=== PATIENT | female | born 1935 | race American Indian/Alaskan Native ===

== ENCOUNTER 2018-02-26 22:05 | Emergency (ER) | payer MEDICARE, OTHER ==
[~2018-02-26] VITALS: Ht 170.2 cm; Wt 68.0 kg
[~2018-02-26 22:05] MED LIST: ACET-3068 PO; ATOR40TA3 PO; BUPR150T6 PO; CALC1TAB26 PO; CLOP75TA33 PO; IBUP-1985 PO; ISOS30TA6 PO; LISI10TA4 PO; LOPE2CAP PO; LORA-660 PO; MECL-111 PO; MECL12.584 PO; METO-384 PO; PANT-47 PO; RANO10003 PO
[2018-02-26] MEDS ORDERED: morphine 4 MG/ML inj SYRINge IM ONE (22:45)
[2018-02-26] MEDS ORDERED: ondansetron 4mg rapidly disintigrating tab PO ONE (22:45)
[2018-02-26 23:45] VITALS: BP 130/71
== END 2018-02-27 00:18 | disposition home or self-care (01) ==
LOC: ER 22:06
DX: S52.502A Unspecified fracture of the lower end of left radius, initial encounter for closed fracture (principal); S00.83XA Contusion of other part of head, initial encounter; I25.10 Atherosclerotic heart disease of native coronary artery without angina pectoris; E78.00 Pure hypercholesterolemia, unspecified; I10 Essential (primary) hypertension; K21.9 Gastro-esophageal reflux disease without esophagitis; G89.29 Other chronic pain; Z90.49 Acquired absence of other specified parts of digestive tract; Z98.61 Coronary angioplasty status; Z90.710 Acquired absence of both cervix and uterus; Z98.890 Other specified postprocedural states; Z60.2 Problems related to living alone; Z79.899 Other long term (current) drug therapy; W01.0XXA Fall on same level from slipping, tripping and stumbling without subsequent striking against object, initial encounter; Y93.89 Activity, other specified; Y92.89 Other specified places as the place of occurrence of the external cause; Y99.8 Other external cause status
CPT/HCPCS: 29125; 70450; 73110; 73502; 96372; 99284; J2270

== ENCOUNTER 2018-03-01 13:30 | Inpatient (IN) | payer MEDICARE, OTHER ==
[~2018-03-01] VITALS: Ht 170.2 cm; Wt 67.0 kg
[2018-03-01 13:56] LABS: BASOPHILS % (AUTO) 0.3 % (0-1); EOSINOPHILS # (AUTO) 0.1 X10'3 (0-0.9); EOSINOPHILS % (AUTO) 0.8 % (0-6); HEMATOCRIT 38.3 % (35.0-45.0); HEMOGLOBIN 13.1 g/dl (12.0-16.0); LYMPHOCYTES # (AUTO) 1.2 X10'3 (1.1-4.8); LYMPHOCYTES % (AUTO) 15.7 % (21-51); MEAN CORPUSCULAR HEMOGLOBIN 31.3 PG (27.0-31.0); MEAN CORPUSCULAR HGB CONC 34.1 % (33.0-36.5); MEAN CORPUSCULAR VOLUME 91.7 FL (78-98); MEAN PLATELET VOLUME 7.2 FL (7.4-10.4); MONOCYTES # (AUTO) 0.8 X10'3 (0-0.9); MONOCYTES % (AUTO) 10.2 % (2-12); NEUTROPHILS # (AUTO) 5.5 X10'3 (1.8-7.7); PLATELET COUNT 181 X10'3 (140-440); RED BLOOD COUNT 4.18 X10'6 (4.20-5.60); RED CELL DISTRIBUTION WIDTH 14.1 % (11.5-14.5); WHITE BLOOD COUNT 7.5 X10'3 (4.5-11.0)
[2018-03-01 14:09] LABS: PARTIAL THROMBOPLASTIN TIME 27 SECONDS (22-32); PROTHROMBIN TIME 10.4 SECONDS (9.0-12.0)
[2018-03-01 14:15] LABS: ALANINE AMINOTRANSFERASE 17 U/L (12-78); ALBUMIN 3.1 G/DL (3.4-5.0); ALBUMIN/GLOBULIN RATIO 0.8 (1.1-1.5); ALKALINE PHOSPHATASE 73 IU/L (46-116); ANION GAP 9 (8-16); ASPARTATE AMINO TRANSFERASE 15 U/L (10-37); BILIRUBIN,TOTAL 1.2 MG/DL (0.1-1.0); BLOOD UREA NITROGEN 13 MG/DL (7-18); CALCIUM 8.9 MG/DL (8.5-10.1); CHLORIDE 101 MMOL/L (99-107); CREATININE 0.93 MG/DL (0.40-0.90); GLUCOSE 92 MG/DL (70-104); POTASSIUM 3.3 MMOL/L (3.5-5.1); SODIUM 137 MMOL/L (135-145); TOTAL PROTEIN 6.9 G/DL (6.4-8.2); eGFR 58 ML/MIN
[2018-03-01] MEDS ORDERED: potassium Cl 20 mEq SR tablet PO STA (14:38)
[2018-03-01] MEDS ORDERED: aspirin 81mg tab.chew PO ONE (14:40)
[2018-03-01] MEDS ORDERED: LACT1CAP65 PO (15:09)
[2018-03-01] MEDS ORDERED: CYAN-19 PO (15:09)
[2018-03-01] MEDS ORDERED: OXYB5TAB11 PO (15:09)
[2018-03-01] MEDS ORDERED: VITA400C65 PO (15:09)
[2018-03-01] MEDS ORDERED: NITR0.4T51 SL (15:09)
[2018-03-01] MEDS ORDERED: MAGN400C PO (15:09)
[2018-03-01] MEDS ORDERED: morphine 4 MG/ML inj SYRINge IV ONE (15:25)
[2018-03-01] MEDS ORDERED: ondansetron/PF 4mg/2ml inj IV ONE (15:25)
[2018-03-01] MEDS ORDERED: magnesium hydroxide 30ml (MOM) UD suspension PO PRN (16:05)
[2018-03-01] MEDS ORDERED: magnesium 1gm/100ml D5W IVPB 100 ML IV PRN (16:05)
[2018-03-01] MEDS ORDERED: HYDROcodone/acetaminophen 10/325mg tab PO PRN (16:05)
[2018-03-01] MEDS ORDERED: mag hydrox/Alum hydrox/simeth 30ml oral suspension PO PRN (16:05)
[2018-03-01] MEDS ORDERED: morphine 4 MG/ML inj SYRINge IV PRN ×2 (16:05)
[2018-03-01] MEDS ORDERED: ondansetron/PF 4mg/2ml inj IV PRN (16:05)
[2018-03-01] MEDS ORDERED: bisacodyl 10mg suppository rectal RC PRN (16:05)
[2018-03-01] MEDS ORDERED: magnesium 4gm in 100ml NS 100 ML IV PRN (16:05)
[2018-03-01] MEDS ORDERED: potassium Cl 20 mEq SR tablet PO PRN ×2 (16:05)
[2018-03-01] MEDS ORDERED: potassium Cl 40MEQ/NS 500ml 500 ML IV PRN ×2 (16:05)
[2018-03-01] MEDS ORDERED: acetaminophen 325mg tablet PO PRN (16:05)
[2018-03-01] MEDS ORDERED: magnesium Cl slow-release 64mg tablet PO PRN (16:05)
[2018-03-01] MEDS ORDERED: nitroGLYCERIN 0.4mg SUBLingual tab SL PRN ×2 (16:10)
[2018-03-01] MEDS ORDERED: pantoprazole 40mg Tablet.DR PO SCH (16:10)
[2018-03-01] MEDS ORDERED: CAFFEINE CITRATE 60 MG/3 ML injection vial IV PRN (16:10)
[2018-03-01] MEDS ORDERED: metoprolol tartrate 1mg/ml inj IV PRN (16:10)
[2018-03-01 16:40] VITALS: BP 140/61
[2018-03-01 19:00] VITALS: BP 102/39
[2018-03-01] MEDS: LIDOcaine 5% patch TP SCH (19:22)
[2018-03-01] MEDS: ranolazine 500mg SR tablet (Q12H) PO SCH (21:12)
[2018-03-01] MEDS: magnesium oxide 400mg tablet PO SCH (21:13)
[2018-03-01] MEDS: calcium carbonate/vitamin D3 tablet PO SCH (21:13)
[2018-03-01] MEDS: oxybutynin 5mg tablet PO SCH (21:13)
[2018-03-01] MEDS: lactobacillus rhamnosus 10,000 MMU CELLS/CAPSULE PO SCH (21:14)
[2018-03-01] MEDS: docusate sod 100mg capsule PO SCH (21:14)
[2018-03-01] MEDS: HYDROcodone/acetaminophen 5mg/325mg tablet PO PRN (21:18)
[2018-03-01 23:00] VITALS: BP 99/51
[2018-03-02] VITALS (19 sets, daily range): BP systolic 103–139; BP diastolic 51–65
[2018-03-02 02:15] LABS: ALBUMIN 2.9 G/DL (3.4-5.0); ANION GAP 4 (8-16); BLOOD UREA NITROGEN 12 MG/DL (7-18); BUN/CREATININE RATIO 11.9 (6.6-38.0); CALCIUM 8.7 MG/DL (8.5-10.1); CHLORIDE 105 MMOL/L (99-107); CREATININE 1.01 MG/DL (0.40-0.90); GLUCOSE 104 MG/DL (70-104); MAGNESIUM 1.8 MG/DL (1.5-2.4); POTASSIUM 4.3 MMOL/L (3.5-5.1); SODIUM 137 MMOL/L (135-145); TOTAL CARBON DIOXIDE 28.4 MMOL/L (24-32); eGFR 52 ML/MIN
[2018-03-02] MEDS ORDERED: regadenoson 0.4mg/5ml syringe IV PRN (05:00)
[2018-03-02] MEDS: LIDOcaine 5% patch TP SCH (07:22)
[2018-03-02] MEDS: enoxaparin 40mg/0.4ml syringe SUBCUT SCH (07:23)
[2018-03-02] MEDS: loratadine 10mg tablet PO SCH (07:24)
[2018-03-02] MEDS: cyanocobalamin 500mcg tablet PO SCH (07:24)
[2018-03-02] MEDS: vitamin E 400 unit capsule PO SCH (07:24)
[2018-03-02] MEDS: lactobacillus rhamnosus 10,000 MMU CELLS/CAPSULE PO SCH ×2 (07:27→20:07)
[2018-03-02] MEDS: calcium carbonate/vitamin D3 tablet PO SCH ×2 (07:28→20:08)
[2018-03-02] MEDS: pantoprazole 40mg Tablet.DR PO SCH (07:28)
[2018-03-02] MEDS: isosorbide mononitrate 30mg tab.SR.24H PO SCH (07:30)
[2018-03-02] MEDS: ranolazine 500mg SR tablet (Q12H) PO SCH ×2 (07:31→20:10)
[2018-03-02] MEDS: clopidogrel 75mg tablet PO SCH (07:31)
[2018-03-02] MEDS: K and/or MAG REPLACEMENT MC SCH (08:00)
[2018-03-02] MEDS: docusate sod 100mg capsule PO SCH ×2 (08:00→20:07)
[2018-03-02] MEDS ORDERED: CAFFEINE CITRATE 60 MG/3 ML injection vial IV ONE ×2 (10:02→15:08)
[2018-03-02] MEDS ORDERED: regadenoson 0.4mg/5ml syringe IV ONE ×3 (10:02→15:08)
[2018-03-02] MEDS: metoprolol succinate 25mg (24-HOUR) SR. Tablet PO SCH (17:47)
[2018-03-02] MEDS: HYDROcodone/acetaminophen 5mg/325mg tablet PO PRN (20:09)
[2018-03-02] MEDS: oxybutynin 5mg tablet PO SCH (20:09)
[2018-03-02] MEDS: magnesium oxide 400mg tablet PO SCH (20:09)
[2018-03-03 02:00] VITALS: BP 132/61
[2018-03-03] MEDS: HYDROcodone/acetaminophen 5mg/325mg tablet PO PRN ×2 (05:38→22:50)
[2018-03-03 06:00] VITALS: BP 132/50
[2018-03-03] MEDS: clopidogrel 75mg tablet PO SCH (07:41)
[2018-03-03] MEDS: metoprolol succinate 25mg (24-HOUR) SR. Tablet PO SCH (07:41)
[2018-03-03] MEDS: isosorbide mononitrate 30mg tab.SR.24H PO SCH (07:41)
[2018-03-03] MEDS: vitamin E 400 unit capsule PO SCH (07:41)
[2018-03-03] MEDS: LIDOcaine 5% patch TP SCH (07:41)
[2018-03-03] MEDS: lactobacillus rhamnosus 10,000 MMU CELLS/CAPSULE PO SCH ×2 (07:41→20:42)
[2018-03-03] MEDS: cyanocobalamin 500mcg tablet PO SCH (07:41)
[2018-03-03] MEDS: loratadine 10mg tablet PO SCH (07:41)
[2018-03-03] MEDS: pantoprazole 40mg Tablet.DR PO SCH (07:41)
[2018-03-03] MEDS: calcium carbonate/vitamin D3 tablet PO SCH ×2 (07:42→20:45)
[2018-03-03] MEDS: enoxaparin 40mg/0.4ml syringe SUBCUT SCH (07:42)
[2018-03-03] MEDS: ranolazine 500mg SR tablet (Q12H) PO SCH ×2 (07:42→20:44)
[2018-03-03] MEDS: docusate sod 100mg capsule PO SCH ×2 (07:42→20:42)
[2018-03-03] MEDS: K and/or MAG REPLACEMENT MC SCH (08:00)
[2018-03-03 09:23] LABS: CLARITY,URINE Cloudy (Clear); COLOR,URINE Yellow (Yellow); GLUCOSE, URINE Negative (Neg); KETONES,URINE Negative (Neg); LEUKOCYTE ESTERASE ,URINE Large (Neg); NITRITES, URINE Negative (Neg); OCCULT BLOOD,URINE Trace (Neg); PROTEIN,URINE Negative (Neg)
[2018-03-03 09:26] LABS: UA COLLECTION TYPE STRAIGHT CATH
[2018-03-03 09:29] LABS: BACTERIA,URINE 4+ /HPF (Neg); MUCUS STRANDS NONE SEEN /LPF (Neg); RBC,URINE 0-2 /HPF (0-2); SQUAMOUS EPITHELIAL CELL,UR NONE SEEN /LPF (FEW); WBC CLUMPS,URINE MODERATE /HPF (NEGATIVE); WBC,URINE TNTC /HPF (0-4)
[2018-03-03] MEDS: CefTRIAXone/D5W-Rocephin 1gm 50 ML IV SCH (10:59)
[2018-03-03 11:00] VITALS: BP 135/61
[2018-03-03 15:00] VITALS: BP 145/76
[2018-03-03 18:00] VITALS: BP 131/69
[2018-03-03] MEDS: magnesium oxide 400mg tablet PO SCH (20:43)
[2018-03-03] MEDS: oxybutynin 5mg tablet PO SCH (20:44)
[2018-03-03 22:00] VITALS: BP 113/52
[2018-03-04 02:00] VITALS: BP 130/61
[2018-03-04 06:00] VITALS: BP 135/65
[2018-03-04] MEDS: K and/or MAG REPLACEMENT MC SCH (08:00)
[2018-03-04] MEDS: ranolazine 500mg SR tablet (Q12H) PO SCH (08:25)
[2018-03-04] MEDS: calcium carbonate/vitamin D3 tablet PO SCH (08:26)
[2018-03-04] MEDS: clopidogrel 75mg tablet PO SCH (08:27)
[2018-03-04] MEDS: cyanocobalamin 500mcg tablet PO SCH (08:27)
[2018-03-04] MEDS: lactobacillus rhamnosus 10,000 MMU CELLS/CAPSULE PO SCH (08:27)
[2018-03-04] MEDS: docusate sod 100mg capsule PO SCH (08:27)
[2018-03-04] MEDS: loratadine 10mg tablet PO SCH (08:27)
[2018-03-04] MEDS: isosorbide mononitrate 30mg tab.SR.24H PO SCH (08:27)
[2018-03-04] MEDS: vitamin E 400 unit capsule PO SCH (08:27)
[2018-03-04] MEDS: metoprolol succinate 25mg (24-HOUR) SR. Tablet PO SCH (08:28)
[2018-03-04] MEDS: LIDOcaine 5% patch TP SCH (08:29)
[2018-03-04] MEDS: pantoprazole 40mg Tablet.DR PO SCH (08:29)
[2018-03-04] MEDS: CefTRIAXone/D5W-Rocephin 1gm 50 ML IV SCH (08:30)
[2018-03-04] MEDS: enoxaparin 40mg/0.4ml syringe SUBCUT SCH (08:31)
[2018-03-04 11:00] VITALS: BP 108/87
[2018-03-04] MEDS ORDERED: ciprofloxacin 250mg tablet PO SCH (11:30)
[2018-03-04] MEDS ORDERED: CIPR250T4 PO (12:00)
[2018-03-04] MEDS ORDERED: CIPR-230 PO (12:02)
[2018-03-04] MEDS ORDERED: ACET1TAB12 PO (13:31)
[2018-03-04 15:00] VITALS: BP 112/67
== END 2018-03-04 17:17 | disposition home or self-care (01) | DRG 206 ==
LOC: ER 13:30 → ED HOLD 15:15 → PCU 3S 16:40
PROVIDERS: ADMIT Internal Medicine; ATTEND Internal Medicine
PROC: 2W0 Placement, Anatomical Regions, Change (ICD-10-PCS; principal; 2018-03-01)
PROC: 4A02XM4 Measurement of Cardiac Total Activity, External Approach (ICD-10-PCS; 2018-03-02)
PROC: 3E073KZ Introduction of Other Diagnostic Substance into Coronary Artery, Percutaneous Approach (ICD-10-PCS; 2018-03-02)
DX: M94.0 Chondrocostal junction syndrome [Tietze] (principal); N39.0 Urinary tract infection, site not specified; I25.119 Atherosclerotic heart disease of native coronary artery with unspecified angina pectoris; E87.6 Hypokalemia; K21.9 Gastro-esophageal reflux disease without esophagitis; E78.00 Pure hypercholesterolemia, unspecified; I10 Essential (primary) hypertension; F32.9 Major depressive disorder, single episode, unspecified; J84.10 Pulmonary fibrosis, unspecified; E78.5 Hyperlipidemia, unspecified; G89.4 Chronic pain syndrome; B95.2 Enterococcus as the cause of diseases classified elsewhere; Z90.710 Acquired absence of both cervix and uterus; Z90.49 Acquired absence of other specified parts of digestive tract; Z95.5 Presence of coronary angioplasty implant and graft; Z79.02 Long term (current) use of antithrombotics/antiplatelets; Z79.899 Other long term (current) drug therapy; Z87.11 Personal history of peptic ulcer disease; S52.92XD Unspecified fracture of left forearm, subsequent encounter for closed fracture with routine healing
CPT/HCPCS: 29125; 36415; 71045; 71100; 78452; 80048; 80053; 81001; 83735; 84484; 85025; 85610; 85730; 87070; 87077; 87088; 87186; 93005; 93017; 93306; 99285; A4315; A4565; A9500; J0696; J1650; J2270; J2405; J7030